=== PATIENT | male | born 1970 | race Caucasian/White ===

== ENCOUNTER 2020-01-16 19:20 | Emergency (ER) | payer SELFPAY ==
[2020-01-16 20:20] VITALS: BP 146/84; PULSE 91; RESP 17; TEMP 36.4; O2SAT 93; BMI 30.2
[2020-01-16] MEDS: lidocaine 1% INJ 20 mL IM (21:13)
[2020-01-16] MEDS: tetanus-dipt-pertussis 0.5 mL SDV IM (21:13)
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
[2020-01-16 21:57] VITALS: BP 126/85; PULSE 83; RESP 18; TEMP 36.7; O2SAT 93
== END 2020-01-16 21:57 | disposition home or self-care (01) ==
PROVIDERS: Emergency Provider Nurse Practitioner Family
DX: S01.01XA Laceration without foreign body of scalp, initial encounter (principal); V89.2XXA Person injured in unspecified motor-vehicle accident, traffic, initial encounter; F17.210 Nicotine dependence, cigarettes, uncomplicated; Z23 Encounter for immunization
CPT/HCPCS: 12002; 12345; 90471; 90715; 99281; 99283; J2001

== ENCOUNTER → 2021-04-27 09:19 | Outpatient (BNVA) | payer OTHER, SELFPAY | PROVIDERS: Visit Provider Emergency Medicine | DX: Z20.822 Contact with and (suspected) exposure to COVID-19 (principal) | CPT/HCPCS: 87635 ==